=== PATIENT | female | born 1965 | race Caucasian/White ===

== ENCOUNTER → 2019-07-20 18:15 | Outpatient (CLI) | payer OTHER, SELFPAY ==
--- NOTE | ~2019-07-20 | MM_ITS ---
EXAMINATION: MM screening aurel[facility] BI w daly HISTORY: Screening mammogram TECHNIQUE: Craniocaudal and mediolateral oblique 3-D tomosynthesis images were obtained and synthetic 2-D images were generated. CAD analysis was submitted and interpreted. COMPARISON: Comparison to multiple prior studies sequentially, with oldest reviewed study dated 01/19. BREAST PARENCHYMAL COMPOSITION: The breasts are almost entirely fatty. FINDINGS: There is no evidence of suspicious mass, calcification, or architectural distortion to sugg est malignancy in either breast. There has been no suspicious interval change. IMPRESSION: 1. No mammographic evidence of malignancy. 2. Recommend routine screening mammography in one year. BI-RADS Category 1: Negative Reviewed, dictated and finalized at location A.
== END ==
PROVIDERS: Visit Provider Nurse Practitioner Family
DX: Z12.31 Encounter for screening mammogram for malignant neoplasm of breast (principal)
CPT/HCPCS: 77063; 77067

== ENCOUNTER → 2020-08-06 15:45 | Outpatient (CLI) | payer OTHER, SELFPAY ==
--- NOTE | ~2020-08-06 | MM_ITS ---
EXAMINATION: MM screening aurel[facility] BI w daly HISTORY: Screening mammogram TECHNIQUE: Craniocaudal and mediolateral oblique 3-D tomosynthesis images were obtained and synthetic 2-D images were generated. CAD analysis was submitted and interpreted. COMPARISON: 07/20/2019, 04/24/2017, 05/31/2014 bilateral digital screening mammogram examinations BREAST PARENCHYMAL COMPOSITION: The breasts are almost entirely fatty. FINDINGS: There is no evidence of suspicious mass, calcification, or architectural distortion to sugg est malignancy in either breast. There has been no suspicious interval change. IMPRESSION: 1. No mammographic evidence of malignancy. 2. Recommend routine screening mammography in one year. BI-RADS Category 1: Negative Reviewed, dictated and finalized at location A.
== END ==
PROVIDERS: PCP Nurse Practitioner Family; Visit Provider Nurse Practitioner Family
DX: Z12.31 Encounter for screening mammogram for malignant neoplasm of breast (principal)
CPT/HCPCS: 77063; 77067

== ENCOUNTER → 2021-03-04 14:39 | Outpatient (CLI) | payer OTHER, SELFPAY ==
--- NOTE | ~2021-03-04 | CT_ITS ---
EXAMINATION: CT abdomen pelvis wo/w con DATE: 03/04/2021 15:32 INDICATION: Gross hematuria TECHNIQUE: Computed tomography (CT) of the abdomen and pelvis was performed without and subsequently with 130 cc Omnipaque 350 intravenous contrast. Automated exposure control and iterative reconstructi on technique were employed. Exam dose: 1600.38 mGy-cm total exam DLP. COMPARISON: None. FINDINGS: The lung bases are clear of infiltrate or consolidation or mass lesion. Normal heart size. No pericardial or pleural effusion. There is diffuse hepatic steatosis. No hepatic or splenic space-occupying mass lesion or splenomegaly . The gallbladder is present. No gallbladder wall thickening or pericholecystic fluid or fat strandin g. No bile duct or pancreatic duct dilatation or pancreatic calcification. Normal morphology of the adrenal glands. Very small lower pole left renal cyst. Otherwise no renal space occupying mass lesion is detected. Best demonstrated on the noncontrast examination is an approximately 2.5 x 3 cm soft tissue mass at t he posterolateral aspect of the urinary bladder near the trigone, which is most likely malignant urot helial carcinoma. No urinary tract calculus is detected. No hydroureteronephrosis. The uterus and adnexal areas are unremarkable. Normal caliber of the abdominal aorta. No intraperitoneal or retroperitoneal or pelvic mass lesion or adenopathy or ascites. Normal appendix. There is a prominent amount of fecal material throughout the colon. No bowel obstruc tion is detected. No intraperitoneal free air. There are numerous lytic areas within the axial skeleton including the thoracic and lumbar spine and pelvic bones, suggesting extensive osteolytic metastatic disease. IMPRESSION: Approximately 2.5 x 3 cm soft tissue mass at the posterolateral aspect of the urinary bl adder near the trigone, most likely urinary bladder malignant urothelial carcinoma. Extensive lytic areas of the axial skeleton suggesting extensive osteolytic metastatic disease Hepatic steatosis Reviewed, dictated and finalized at Location A. Reviewed, dictated and finalized at location A. IMPRESSION: Approximately 2.5 x 3 cm soft tissue mass at the posterolateral as pect of the urinary bladder near the trigone, most likely urinary bladder malig nant urothelial carcinoma. Extensive lytic areas of the axial skeleton suggesting extensive osteolytic met astatic disease Hepatic steatosis
[2021-03-04 15:09] LABS: Estimated Glomerular Filt Rate > 60
== END ==
PROVIDERS: Visit Provider Nurse Practitioner
DX: R31.0 Gross hematuria (principal); K76.0 Fatty (change of) liver, not elsewhere classified
CPT/HCPCS: 74178; Q9967

== ENCOUNTER → 2022-03-14 15:48 | Outpatient (CLI) | payer OTHER, SELFPAY ==
--- NOTE | ~2022-03-14 | MM_ITS ---
EXAMINATION: MM screening aureliano BI w daly HISTORY: Screening mammogram TECHNIQUE: Craniocaudal and mediolateral oblique 3-D tomosynthesis images were obtained and synthetic 2-D images were generated. CAD analysis was submitted and interpreted. COMPARISON: , 07/20/2019, 04/24/2017 bilateral screening mammogram examinations BREAST PARENCHYMAL COMPOSITION: The breasts are almost entirely fatty. FINDINGS: There is no evidence of suspicious mass, calcification, or architectural distortion to sugg est malignancy in either breast. There has been no suspicious interval change. IMPRESSION: 1. No mammographic evidence of malignancy. 2. Recommend routine screening mammography in one year. BI-RADS Category 1: Negative Reviewed, dictated and finalized at location A. RIVETER
== END ==
PROVIDERS: PCP Nurse Practitioner Family; Visit Provider Nurse Practitioner Family
DX: Z12.31 Encounter for screening mammogram for malignant neoplasm of breast (principal)
CPT/HCPCS: 77063; 77067

== ENCOUNTER 2022-04-14 14:40 | Outpatient (CLI) | payer OTHER, SELFPAY ==
--- NOTE | 2022-04-14 | ECG_ITS ---
Measurements Intervals [place] Rate: 65 P: 35 [place]: 174 QRS: -27 QRSD: 102 T: 1 QT: 421 QTc: 440 Interpretive Statements SINUS RHYTHM BORDERLINE LEFT AXIS DEVIATION [QRS AXIS < -20] MINIMAL VOLTAGE CRITERIA FOR LVH, CONSIDER NORMAL VARIANT [MEETS CRITERIA IN ONE OF: R(aVL), S(V1), R(V5), R(V5/V6)+S(V1)] NO PREVIOUS ECG AVAILABLE FOR COMPARISON Electronically Signed On 04-15-2022 16:15:45 SENIOR COMPENSATION ANALYST by Abby Fuchs M.D.
== END 2022-04-14 14:41 | disposition home or self-care (01) ==
LOC: ANHCARD 14:49
PROVIDERS: PCP Nurse Practitioner Family
DX: I10 Essential (primary) hypertension (principal)
CPT/HCPCS: 93005

== ENCOUNTER 2023-06-08 03:41 | Emergency (ER) | payer OTHER, SELFPAY ==
[2023-06-08] VITALS (21 sets, daily range): BP systolic 110–151; BP diastolic 66–88; PULSE 59–84; RESP 13–33; TEMP 36.8–36.9; O2SAT 93–100
--- NOTE | ~2023-06-08 | XR_ITS ---
EXAMINATION: XR chest 2V DATE: 06/08/2023 04:15 INDICATION: Chest pain. TECHNIQUE: Frontal and lateral views of the chest were obtained. COMPARISON: Chest 2 views 06/14/2017, CT abdomen and pelvis 03/04/2021 FINDINGS: There is no pneumonia, pleural effusion, or pneumothorax. The heart size is normal. IMPRESSION: 1. No acute cardiopulmonary disease. Reviewed, dictated and finalized at location E. [employer] SPORTS CENTRE MANAGER
--- NOTE | 2023-06-08 03:42 | ECG_ITS ---
Measurements Intervals [place] Rate: 93 P: 51 [place]: 163 QRS: -34 QRSD: 100 T: 17 QT: 381 QTc: 476 Interpretive Statements SINUS RHYTHM POSSIBLE LEFT ATRIAL ENLARGEMENT [-0.1mV P-WAVE IN V1/V2] LEFT AXIS DEVIATION [QRS AXIS < -30] ABNORMAL ECG COMPARED TO ECG 04/14/2022 15:25:34 NO SIGNIFICANT CHANGES Electronically Signed On 06-08-2023 7:46:01 PUBLIC SPEAKING TEACHER by Alden Gibson M.D.
[2023-06-08 04:10] LABS: Basophils Absolute Auto 0.1 K/mm3 (0.0-0.1); Basophils Percent Auto 0.7 % (0.2-1.2); Eosinophils Absolute Auto 0.3 K/mm3 (0-0.3); Eosinophils Percent Auto 4.2 % (0-4.4); Hematocrit 43.8 % (37.0-47.0); Hemoglobin 14.4 g/dL (12.0-15.0); Immature Granulocyte Absolute 0.02 K/mm3 (0.00-0.031); Immature Granulocyte Percent A 0.3 % (0-0.5); Lymphocytes Absolute Auto 3.13 K/mm3 (0.9-3.2); Lymphocytes Percent Auto 44.3 % (18.3-44.2); Mean Corpuscular HGB Conc 32.9 g/dl (32-36); Mean Corpuscular Hemoglobin 29.5 pg (26-34); Mean Corpuscular Volume 89.8 fl (80-100); Mean Platelet Volume 9.4 fl (7.4-10.4); Monocytes Absolute Auto 0.6 K/mm3 (0.1-0.6); Monocytes Percent Auto 8.8 % (2.6-8.5); Neutrophils Percent Auto 41.7 % (45.5-73.1); Platelet Count Result 143 k/mm3 (150-375); Red Blood Count 4.88 M/mm3 (4.2-5.4); Red Cell Distribution Width 12.8 % (11.5-14.5); White Blood Count 7.1 K/mm3 (4.5-10.0)
[2023-06-08 04:41] LABS: Prothrombin Time 13.8 Seconds (11.1-14.7)
[2023-06-08] MEDS: NITROGLYCERIN SL 0.4 MG TABLET SUBLINGUAL (04:57)
--- NOTE | 2023-06-08 04:57 | PC.NURSE ---
0457 1st nitro given SL. VS 64bpm, 16RR, 97% on RA, 127/75 bp. Pain 0/10. pain relieved, no further dose needed at this time.
[2023-06-08 05:03] LABS: Alanine Aminotransferase 80 U/L (6-35); Albumin Level 4.2 g/dL (3.5-5.1); Alkaline Phosphatase 70 U/L (38-126); Anion Gap 4 mmol/L (8-16); Aspartate Amino Transferase 44 U/L (14-36); Bilirubin,Total 0.6 mg/dL (0.2-1.3); Blood Urea Nitrogen 19 mg/dL (7-17); Calcium 9.1 mg/dL (8.4-10.2); Carbon Dioxide 31 mmol/L (22-30); Chloride 104 mmol/L (98-107); Estimated CRCL calculation 90 ml/min; Estimated Glomerular Filt Rate > 60; Glucose 129 mg/dL (65-110); Lipase 103 U/L (23-300); Potassium 4.4 mmol/L (3.4-5.0); Sodium 139 mmol/L (137-145)
--- NOTE | 2023-06-08 05:06 | ED.GENADULT ---
HPI - General Adult General Chief complaint: Chest Pain <Mehul Mtz MD - Last Filed: 06/08/23 19:08> Stated complaint: Chest pain <Mehul Mtz MD - Last Filed: 06/08/23 19:08> Time Seen by Provider: 06/08/23 04:14 <Mehul Mtz MD - Last Filed: 06/08/23 19:08> History of Present Illness HPI narrative: Patient is a 57-year-old female who presents emergency department with chief complaint of chest discomfort. Patient reports this evening she started having a pressure sensation in the middle portion of her chest patient reports no diaphoresis denies radiation of the pain patient reports he has not had pain like this before in the past. Patient reports no prior cardiac disease does report that she has history of hypertension <Mehul Mtz MD - Last Filed: 06/08/23 19:08> Related Data Allergies/adverse reactions: Allergies Allergy/AdvReac Type Severity Reaction Status Date / Time No Known Allergies Allergy Mild Verified 06/08/23 03:56 <Mehul Mtz MD - Last Filed: 06/08/23 19:08> Review of Systems Review of Systems: A 10 system review of systems was completed on the patient and is negative except for what is stated in the HPI. Nursing and ancillary documentation was reviewed. <Mehul Mtz MD - Last Filed: 06/08/23 19:08> Exam Narrative: GENERAL: Well-appearing, well-nourished, and in no acute distress. HEAD: Normocephalic, atraumatic. EYES: PERRLA and EOMI. ENT: Nares clear, no rhinorrhea or epistaxis. Mucous membranes moist. NECK: Supple. CHEST: Clear to auscultation. No respiratory distress. HEART: Regular rate and rhythm. No murmur heard. Normal peripheral pulses. ABDOMEN: Soft, nontender, nondistended, normal active bowel sounds. EXTREMITIES: Normal range of motion. No edema. SKIN: Warm, dry, no rash. NEURO: No focal deficits. Alert and oriented x3. PSYCH: Normal mood and affect. <Mehul Mtz MD - Last Filed: 06/08/23 19:08> Course Reevaluation(s) Reevaluation #1: 57-year-old female presenting to the emergency department for evaluation of chest pain. Patient care was signed out to me by the overnight physician with the plan for disposition pending the delta troponin. Patient's 2nd troponin was negative. Patient was up the results of her workup the patient was encouraged to have close follow-up with her primary care physician for additional outpatient cardiac workup. <Anrdes Stein MD - Last Filed: 06/08/23 18:18> Vital Signs Vital signs: Vital Signs Temperature 36.8 C 06/08/23 03:48 Pulse Rate 83 06/08/23 03:48 Respiratory Rate 19 06/08/23 03:48 Blood Pressure 151/88 H 06/08/23 03:48 Pulse Oximetry 100 06/08/23 03:48 Oxygen Delivery Room Air 06/08/23 03:48 Temperature 36.9 C 06/08/23 08:57 Pulse Rate 64 06/08/23 08:57 Respiratory Rate 18 06/08/23 08:57 Blood Pressure 123/68 06/08/23 08:57 Pulse Oximetry 96 06/08/23 08:57 Oxygen Delivery Room Air 06/08/23 03:59 <Mehul Mtz MD - Last Filed: 06/08/23 19:08> Vital Signs Temperature 36.8 C 06/08/23 03:48 Pulse Rate 83 06/08/23 03:48 Respiratory Rate 19 06/08/23 03:48 Blood Pressure 151/88 H 06/08/23 03:48 Pulse Oximetry 100 06/08/23 03:48 Oxygen Delivery Room Air 06/08/23 03:48 Temperature 36.9 C 06/08/23 08:57 Pulse Rate 64 06/08/23 08:57 Respiratory Rate 18 06/08/23 08:57 Blood Pressure 123/68 06/08/23 08:57 Pulse Oximetry 96 06/08/23 08:57 Oxygen Delivery Room Air 06/08/23 03:59 <Andres Stein MD - Last Filed: 06/08/23 18:18> Medical Decision Making MDM Narrative Medical decision making narrative: Differential diagnosis includes ACS, angina, esophageal spasm, noncardiac chest pain, Laboratory studies were obtained on the patient which showed a troponin at the 0 hour of 0.012 CBC CMP
[2023-06-08 05:09] LABS: Troponin I 0.012 ng/mL (0.000-0.034)
--- NOTE | 2023-06-08 07:41 | ECG_ITS ---
Measurements Intervals [place] Rate: 62 P: 23 [place]: 180 QRS: -27 QRSD: 90 T: -10 QT: 410 QTc: 417 Interpretive Statements SINUS RHYTHM LEFT AXIS DEVIATION [QRS AXIS < -20] VOLTAGE CRITERIA FOR LVH [MEETS CRITERIA IN ONE OF: R(aVL), S(V1), R(V5), R(V5/V6)+S(V1)] ABNORMAL ECG COMPARED TO ECG 06/08/2023 03:48:42 NO SIGNIFICANT CHANGE Electronically Signed On 06-08-2023 16:46:32 LIFESTYLE BLOCK FARMER by Alden iGbson M.D.
[2023-06-08 08:19] LABS: Troponin I < 0.012 ng/mL (0.000-0.034)
== END 2023-06-08 09:01 | disposition home or self-care (01) ==
PROVIDERS: Emergency Provider Emergency Medicine; PCP Nurse Practitioner Family
DX: R07.89 Other chest pain (principal); R94.31 Abnormal electrocardiogram [ECG] [EKG]
CPT/HCPCS: 36415; 71046; 80053; 83690; 84484; 85025; 85610; 85730; 93005; 99284; A9270